=== PATIENT | female | born 1940 ===

== ENCOUNTER 2019-02-20 09:58 | Emergency (ER) | payer MEDICARE ==
[2019-02-20 09:58] VITALS: BMI 27.3
[2019-02-20 10:24] VITALS: TEMP 98.2
--- NOTE | 2019-02-20 11:08 | ED PDOC ---
Arrival/HPI - General Chief Complaint: Trauma Time Seen by Provider: 02/20/19 10:02 Historian: Patient - History of Present Illness Narrative History of Present Illness (Text): 78 year old female, with past medical history of hypertension, and asthma, not on any medication, presents to the ED complaining of right rib pain s/p mechanical fall 2 days ago. Patient notes trip and fall onto her right rib but denies any head injury or loss of consciousness at the time. Patient reports discomfort to her right rib and right shoulder since then, intermittently improved after taking Tylenol. As per patient, symptoms worsen with palpation, prompting her to present to the ED for evaluation. Patient denies any other associated somatic complaints. Patient denies any fevers, chills, headache, dizziness, chest pain, shortness of breath, dyspnea on exertion, cough, diaphoresis, abdominal pain, nausea, vomiting, diarrhea, back pain, neck pain, or any other complaints. Time/Duration: < week Symptom Onset: Gradual Symptom Course: Unchanged Activities at Onset: Light Context: Home Past Medical History - Provider Review Nursing Documentation Reviewed: Yes - Infectious Disease Hx of Infectious Diseases: None - Tetanus Immunization Tetanus Immunization: Unknown - Cardiac Hx Cardiac Disorders: Yes Hx Pacemaker: No - Pulmonary Hx Respiratory Disorders: Yes Hx Asthma: Yes - Neurological Hx Paralysis: No - Hematological/Oncological Hx Blood Transfusions: No Hx Blood Transfusion Reaction: No - Musculoskeletal/Rheumatological Hx Musculoskeletal Disorders: No - Psychiatric Hx Emotional Abuse: No Hx Physical Abuse: No Hx Substance Use: No - Surgical History Hx Section: Yes Hx Thyroidectomy: Yes - Anesthesia Hx Anesthesia Reactions: No Hx Malignant Hyperthermia: No - Suicidal Assessment Feels Threatened In Home Enviroment: No Family/Social History - Physician Review Nursing Documentation Reviewed: Yes Family/Social History: Unknown Family HX Smoking Status: Never Smoked Hx Alcohol Use: No Hx Substance Use: No Allergies/Home Meds Allergies/Adverse Reactions: Allergies amoxicillin Allergy (Verified 02/20/19 10:16) RASH azithromycin Allergy (Verified 02/20/19 10:16) RASH levofloxacin Allergy (Verified 02/20/19 10:16) RASH methylprednisolone Allergy (Verified 02/20/19 10:16) RASH Home Medications: Home Meds Medication Instructions Recorded Confirmed Rosuvastatin Calcium [Crestor] 10 mg PO DAILY 05/15/13 02/20/19 Albuterol Sulfate [Albuterol Hfa] 0.09 mg IH BID PRN 09/24/14 02/20/19 Multivitamin/Iron/Folic Acid 1 tab PO DAILY 09/24/14 02/20/19 [Centrum] Review of Systems - Physician Review All systems were reviewed & negative as marked: Yes - Review of Systems Constitutional: absent: Fevers Eyes: absent: Vision Changes ENT: absent: Hearing Changes Respiratory: absent: SOB, Cough Cardiovascular: absent: Chest Pain Gastrointestinal: absent: Abdominal Pain, Diarrhea, Nausea, Vomiting Genitourinary Female: absent: Dysuria, Hematuria Musculoskeletal: Arthralgias (Right Shoulder pain, right rib pain ). absent: Back Pain, Neck Pain Skin: absent: Rash Neurological: absent: Headache, Dizziness Endocrine: absent: Diaphoresis Psychiatric: absent: Anxiety Physical Exam Vital Signs Reviewed: Yes Vital Signs Temp Pulse Resp BP Pulse Ox 02/20/19 10:19 98.2 F 85 17 117/75 95 Temperature: Afebrile Blood Pressure: Normal Pulse: Regular Respiratory Rate: Normal Appearance: Positive for: Well-Appearing, Non-Toxic, Comfortable Pain Distress: None Mental Status: Positive for: Alert and Oriented X 3 - Systems Exam Head: Present: Atraumatic, Normocephalic Pupils: Present: PERRL Extroacular Muscles: Present: EOMI Conjunctiva: Present: Normal Ears: Present: Normal Mouth: Present: Moist Mucous Membranes Pharnyx: Present: Normal. No: ERYTHEMA, EXUDATE, TONSILS ENLARGED Neck: Present: Normal Range of Motion. No: Meningeal Signs, MIDLINE TENDERNESS, Paraspinal Tenderness Respiratory/Chest: Present: Clear to Auscultation, Good Air Exchange, Tender to Palpation (Point tenderness to right ribs along the lateral portion). No: Respiratory Distress, Accessory Muscle Use Cardiovascular: Present: Regular Rate and Rhythm, Normal S1, S2. No: Murmurs Abdomen: No: Tenderness, Distention, Peritoneal Signs Back: Present: Normal Inspection. No: CVA Tenderness, Midline Tenderness Upper Extremity: Present: Normal ROM, NORMAL PULSES, Tenderness (point tenderness to anterior shoulder.), Neurovascularly Intact, Capillary Refill < 2s, Other (no hand pain or other extremity pain. No snuff box pain). No: Cyanosis, Edema, Deformity Lower Extremity: Present: Normal Inspection, NORMAL PULSES, Neurovascularly Intact. No: Edema, Tenderness Neurological: Present: GCS=15, CN II-XII Intact, Speech Normal Skin: Present: Warm, Dry, Normal Color. No: Rashes Psychiatric: Present: Alert, Oriented x 3, Normal Insight, Normal Concentration Medical Decision Making ED Course and Treatment: 02/20/19 11:03 Impression: 78 year old female presents to the ED for evaluation of right rib pain and right shoulder pain s/p mechanical fall. Differential Diagnosis included but are not limited to rib fracture vs. shoulder fracture vs. sprain. Patient refuses labs and only requests imaging. Will seek out imaging. Unlikely cardiac associated chest pain given CP on palpation, hx of chest pain followed by fall. Plan: -- EKG -- X-ray of right ribs -- X-ray of right shoulder -- Reassess and disposition Prior Visits: Notes and results from previous visits were reviewed. Progress Notes: 02/20/19 12:09 EKG reviewed, shows NSR at 65 bpm, no STEMI. 02/20/19 12:29 X-ray of Shoulder reviewed by radiologist shows: IMPRESSION: Normal radiographs of the right shoulder. X-ray of Ribs reviewed by radiologist, shows: IMPRESSION: Unremarkable radiographs of the chest and right ribs. No right rib fracture. 02/20/19 12:44 Informed pt regarding results, she notes chest pain has improved while sitting in emergency department. denies any substernal chest pain or shortness of breath, remains w/ lungs cta b/l and no abd pain or tenderness. remains b/v intact in all extremities. clear for d/c home w/ return indications and follow up, pt agreeble to plan. - RAD Interpretation Radiology Orders: 02/20/19 11:01 RIBS RIGHT & PA CHEST [RAD] Stat SHOULDER RIGHT [RAD] Stat Back Panel Padder: Radiologist - EKG Interpretation Interpreted by ED Physician: Yes Type: 12 lead EKG - Scribe Statement The provider has reviewed the documentation as recorded by the Scribe Rosetta Gale. All medical record entries made by the Scribe were at my direction and personally dictated by me. I have reviewed the chart and agree that the record accurately reflects my personal performance of the history, physical exam, medical decision making, and the department course for this patient. I have also personally directed, reviewed, and agree with the discharge instructions and disposition. Disposition/Present on Arrival - Present on Arrival Any Indicators Present on Arrival: No History of DVT/PE: No History of Uncontrolled Diabetes: No Urinary Catheter: No History of Decub. Ulcer: No History Surgical Site Infection Following: None - Disposition Have Diagnosis and Disposition been Completed?: Yes Diagnosis: Chest pain, Muscular pain Disposition: HOME/ ROUTINE Disposition Time: 12:45 Patient Problems: Current Active Problems Problem Status Onset Chest pain Acute Muscular pain Acute Condition: STABLE Discharge Instructions (ExitCare): Chest Pain (ED) Additional Instructions: SARA CANALES, thank you for letting us take care of you today. Your provider was Ajit Ryan and you were treated for fall. The emergency medical care you received today was directed at your acute symptoms. If you were prescribed any medication, please fill it and take as directed. It may take several days for your symptoms to resolve. Return to the Emergency Department if your symptoms worsen, do not improve, or if you have any other problems. Please contact your doctor or call one of the physicians/clinics you have been referred to that are listed on the Patient Visit Information form that is included in your discharge packet. Bring any paperwork you were given at discharge with you along with any medications you are taking to your follow up visit. Our treatment cannot replace ongoing medical care by a primary care provider outside of the emergency department. Thank you for allowing the [facility] team to be part of your care today. If you had an X-Ray or CT scan: A Radiologist will review the ED reading if any change in treatment is needed we will contact you. If you had a blood, urine, or wound culture: It will take several days for the results, if any change in treatment is needed we will contact you. If you had an STI test: It will take 48 hours for the results. Please call after 1 week if you have not heard back. Referrals: Ricky Faustin MD [Primary Care Provider] - Follow up with primary Durga Ruggiero MD [Staff Provider] - Follow up with primary [email or web address] [Outside] - Follow up with primary [facility] [Outside] - Follow up with primary [facility] [Outside] - Follow up with primary Forms: [email or web address] (Danish)
--- NOTE | 2019-02-20 12:20 | RAD ---
Date of service: 02/20/2019 PROCEDURE: Radiographs of the Right Shoulder HISTORY: cp COMPARISON: No prior. TECHNIQUE: 3 views obtained. FINDINGS: BONES: Normal. No fracture. JOINTS: Normal. Glenohumeral and acromioclavicular joints preserved. No osteoarthritis. SOFT TISSUES: Normal. OTHER FINDINGS: None. IMPRESSION: Normal radiographs of the right shoulder.
--- NOTE | 2019-02-20 12:22 | RAD ---
Date of service: 02/20/2019 PROCEDURE: Radiographs of the Chest and Right Ribs. HISTORY: cp COMPARISON: None available. TECHNIQUE: Frontal radiograph of the chest and multiple oblique radiographs of the right ribs were obtained. 4 views obtained. FINDINGS: RIGHT RIBS: No fracture or focal lesion visualized. LUNGS: Clear. PLEURA: No pneumothorax or pleural fluid. CARDIOVASCULAR: Normal cardiac size. No pulmonary vascular congestion. Aortic calcification OTHER FINDINGS: None. IMPRESSION: Unremarkable radiographs of the chest and right ribs. No right rib fracture.
[2019-02-20 12:24] VITALS: BP 139/74; PULSE 71; RESP 18; O2SAT 98
--- NOTE | 2019-02-20 21:35 | CARD ---
APPROVED REPORT Date of service: 02/20/2019 EKG Measurement Heart [id number] <Conclusion> Normal sinus rhythm Leftward axis NDSTT abnormalities Abnormal ECG
== END 2019-02-20 12:53 | disposition home or self-care (01) ==
LOC: ED 09:58
DX: R07.9 Chest pain, unspecified (principal); M79.10 Myalgia, unspecified site; I10 Essential (primary) hypertension